=== PATIENT | female | born 1975 | race Caucasian/White ===

== ENCOUNTER → 2016-09-28 | Outpatient (CLI) | payer OTHER ==
[~2016-09-28] MED LIST: AMPH30TA2 PO; ATV/1 PO; BCPILLS PO; CHOL1CAP57 PO; DICY20TA35 PO; GABA600T PO; LORA-741 PO; MELA1TAB5 PO; METH-307 PO; MULT-506 PO; OMEG10007 PO; OXYC-57 PO; PANT40TA PO; POLY335019 PO; VITAMIN B12 SL; ZIPR60CA PO
[2016-09-28 17:35] LABS: BASO % 0.5 %; BASO ABS # 0.05 K/uL (0-0.2); COMPLETE YES; EOS % 0.6 %; HEMATOCRIT 41.5 % (37-47); IG% 0.2 %; LYMPH % 44.1 %; LYMPH ABS # 4.61 K/uL (1.2-3.4); MEAN CELL VOLUME 89.4 fL (80-100); MEAN CORPUSCULAR HEMOGLOBIN 30.6 pg (25-34); MEAN CORPUSCULAR HGB CONC 34.2 g/dl (32-36); MEAN PLATELET VOLUME 9.9 fL (7.4-10.4); MONO % 5.6 %; PLATELET COUNT 309 K/uL (130-400); RED BLOOD COUNT 4.64 M/uL (4.2-5.4); WHITE BLOOD COUNT 10.46 K/uL (4.8-10.8)
== END | disposition home or self-care (01) ==
LOC: C.LAB1850 17:05
PROVIDERS: ATTEND Psychiatry & Neurology Neurology
DX: M79.1 Myalgia (principal)